=== PATIENT | female | born 1990 | race Hispanic/Latino ===

== ENCOUNTER 2021-11-04 08:06 | Inpatient (IN) | payer MEDICAID, OTHER ==
[2021-11-04] MEDS ORDERED: Promethazine HCl 25 MG/ML VIAL IM PRN (08:43)
[2021-11-04] MEDS ORDERED: Lidocaine 1% (PF) 30 ML VIAL SC PRN (08:43)
[2021-11-04] MEDS ORDERED: Butorphanol Tartrate 1 MG/ML VIAL SLOW IVP PRN (08:43)
[2021-11-04] MEDS ORDERED: Ibuprofen 800 MG TAB PO PRN (08:43)
[2021-11-04] MEDS ORDERED: HYDROcodone/Acetaminophen 5/325 mg Tablet PO PRN ×2 (08:43)
[2021-11-04] MEDS ORDERED: Ondansetron PF 4 MG/2 ML Vial IVP PRN ×2 (08:43→13:30)
[2021-11-04] MEDS ORDERED: hydrALAZINE 20 MG/ML VIAL SLOW IVP PRN ×2 (08:43→13:30)
[2021-11-04] MEDS ORDERED: Lactated Ringer's 1,000 ML IV SCH (08:45)
[2021-11-04] MEDS ORDERED: NS w/ Oxytocin 30 units 500 ML IV SCH ×2 (08:45→13:30)
[2021-11-04 08:52] VITALS: BMI 30.5
[2021-11-04 09:20] LABS: Hemoglobin 13.4 g/dL (12.0-15.5); Mean Corpuscular HGB CONC 33.5 g/dL (32.0-36.0); Mean Corpuscular Hemoglobin 29.1 pg (27.0-33.0); Mean Corpuscular Volume 86.8 fl (81.6-98.3); Mean Platelet Volume 11.2 fl (7.4-10.4); Platelet Count 224 10x3/uL (150-450); RBC Distribution Width 13.8 % (11.5-14.5); Red Blood Cell (RBC) Count 4.61 10x6/uL (3.90-5.03); White Blood Cell (WBC) Count 8.9 10x3/uL (3.5-10.5)
[2021-11-04 09:47] LABS: Hep B Surf Ag Non-Reactive S/CO (NonReactive); Syphilis Antibody Nonreactive (Nonreactive); Syphilis Antibody Index 0.06 S/CO (<1.00 Non-Reactive)
[2021-11-04 09:50] LABS: HBSAg Index 0.32 S/CO (0-0.99)
[2021-11-04] MEDS ORDERED: Boostrix 0.5 ML (Tdap) VIAL IM ONE (13:30)
[2021-11-04] MEDS ORDERED: Benzocaine-Menthol 82.5 ML CAN TOP PRN (13:30)
[2021-11-04] MEDS ORDERED: Lanolin Ointment 7 GM TUBE TOP PRN (13:30)
[2021-11-04] MEDS ORDERED: Bisacodyl 10 MG SUPP PR PRN (13:30)
[2021-11-04] MEDS ORDERED: Milk Of Magnesia 30 ML UDCUP PO PRN (13:30)
[2021-11-04] MEDS ORDERED: Preparation H Ointment 28 GM TUBE PR PRN (13:30)
[2021-11-04] MEDS ORDERED: diphenhydrAMINE 25 MG CAP PO PRN (13:30)
[2021-11-04] MEDS: HYDROcodone/Acetaminophen 5/325 mg Tablet PO PRN (15:43)
[2021-11-04] MEDS: Ibuprofen 800 MG TAB PO SCH ×2 (17:06→21:44)
[2021-11-04] MEDS: Ferrous Sulfate 325 MG TAB PO SCH (18:03)
[2021-11-04] MEDS: Docusate 100 MG CAP PO SCH (21:44)
[2021-11-04 23:51] LABS: SARS-CoV-2 PCR by NAA Not Detected (NotDetected)
[2021-11-05] MEDS: Ibuprofen 800 MG TAB PO SCH ×3 (05:33→21:32)
[2021-11-05] MEDS: Ferrous Sulfate 325 MG TAB PO SCH ×2 (08:53→16:41)
[2021-11-05] MEDS: Prenatal Vitamin 1 TAB PO SCH (08:54)
[2021-11-05] MEDS: Docusate 100 MG CAP PO SCH ×2 (08:54→21:32)
[2021-11-05] MEDS: HYDROcodone/Acetaminophen 5/325 mg Tablet PO PRN ×2 (13:58→21:32)
[2021-11-06] MEDS: Ibuprofen 800 MG TAB PO SCH (05:26)
[2021-11-06] MEDS: Ferrous Sulfate 325 MG TAB PO SCH (07:24)
[2021-11-06 07:58] VITALS: BP 103/68; TEMP 97.5
[2021-11-06] MEDS: Docusate 100 MG CAP PO SCH (09:10)
[2021-11-06] MEDS: Prenatal Vitamin 1 TAB PO SCH (09:10)
[2021-11-06] MEDS: HYDROcodone/Acetaminophen 5/325 mg Tablet PO PRN (12:11)
== END 2021-11-06 14:39 | disposition home or self-care (01) | DRG 807 ==
LOC: CSHLD/OP 08:06 → CSHLD 08:43 → CSHPED 16:39
PROVIDERS: ADMIT Obstetrics & Gynecology; ATTEND Obstetrics & Gynecology
PROC: 10E0XZZ Delivery of Products of Conception, External Approach (ICD-10-PCS; principal; 2021-11-04)
DX: O99.284 Endocrine, nutritional and metabolic diseases complicating childbirth (principal); Z37.0 Single live birth; E03.9 Hypothyroidism, unspecified; Z3A.37 37 weeks gestation of pregnancy; Z20.822 Contact with and (suspected) exposure to COVID-19
CPT/HCPCS: 36415; 85027; 86780; 86850; 86900; 86901; 87340; 99285; J2590; J7120; U0003; U0005